=== PATIENT | female | born 1990 | race Caucasian/White ===

== ENCOUNTER 2025-05-12 10:41 | Outpatient (CLI) | payer MEDICAID ==
[~2025-05-12 10:41] MED LIST: Iopamidol 370 76% 100 ML VIAL ONE
== END 2025-05-12 10:42 | disposition home or self-care (01) ==
LOC: NAV CT 10:41
PROVIDERS: ATTEND Nurse Practitioner Family
DX: N20.0 Calculus of kidney (principal); N83.8 Other noninflammatory disorders of ovary, fallopian tube and broad ligament
CPT/HCPCS: 74178; Q9967